=== PATIENT | female | born 1955 | race African-American/Black ===

== ENCOUNTER 2017-06-16 15:07 | Emergency (ER) | payer OTHER ==
[~2017-06-16] VITALS: Ht 162.6 cm; Wt 72.6 kg
[~2017-06-16 15:07] MED LIST: ALLOPURINOL 10100 M1 PO; ASPIR 8181 M1 PO; ASPIRIN325; ATORVASTATIN CA40 MG PO; AUGMENTIN 875875 MG PO; BRILINTA90 MG PO; CARISOPRODOL 3350 MG; CARISOPRODOL 3350 MG PO; COLCHICINE0.6 MG PO; COREG3.125 MG PO; DELSYM30 MG/5 M1 PO; FLEXERIL PO; HYDROCHLOROTHIA25 M2 PO; HYDROCODONE-AP1 EAC6 PO; IMDUR 30 MG TAB30 M1; IMDUR 30 MG TAB30 M1 PO; INDOCIN25 MG/5 ML PO; KLOR-CON 1010 MEQ PO; LEVOTHYROXIN0.125 M1 PO; LIDODERM 5%1 PATC1 TRANSDERM; LISINOPRIL2.5 MG PO; LISINOPRIL40 MG; LISINOPRIL40 MG PO; LOPRESSOR25 PO; LORTAB; LOVASTAT20; MEDROL4 MG PO; NEURONTIN 300300 M1 PO; NITROSTAT0.4 MG SUBLING; NORCO 5-325 TA1 EAC1 PO; NORCO 5-325 TA1 EACH PO; NORVASC5 MG PO; ONDANSETRON HCL4 M2 PO; OXYCODONE HCL15 MG PO; OXYCONTIN10 M1; OXYCONTIN10 M1 PO; PERCOCET 5-3251 EACH PO; PERCOCET PO; PLAVIX 75 MG TA75 M1 PO; PLAVIX 75 MG TA75 MG; PLAVIX 75 MG TA75 MG PO; PROMETHAZINE D480 ML PO; PROTONIX40 M1 PO; PROTONIX40 M2 PO; PROTONIX40 M4 PO; RANEXA 500 MG500 M1; ROBAXIN 750 MG750 M1 PO; ROBAXIN500 MG PO; ROXICODONE30 MG PO; SYNTHROID25 MCG; TESSALON PERLE100 MG PO; TOPROL XL25 MG; TOPROL XL25 MG PO; TRAMADOL 50 MG50 MG PO; ZOLOFT100 MG PO; ZPAK PO
[2017-06-16] MEDS ORDERED: OXYCONTIN10 M1 PO (15:32)
== END 2017-06-16 16:20 | disposition home or self-care (01) ==
LOC: ER 15:07
DX: R19.7 Diarrhea, unspecified (principal); I10 Essential (primary) hypertension; I25.2 Old myocardial infarction; K21.9 Gastro-esophageal reflux disease without esophagitis; F17.210 Nicotine dependence, cigarettes, uncomplicated